=== PATIENT | female | born 1995 | race Caucasian/White ===

== ENCOUNTER 2021-08-01 23:14 | Emergency (ER) | payer MEDICAID ==
[~2021-08-01] VITALS: Ht 162.6 cm; Wt 52.2 kg
[2021-08-01 23:59] VITALS: BP 132/82
[2021-08-02] MEDS ORDERED: TDAP [DIPH/PERTUSSIS/TET] 0.5 ML VIAL IM ONE (00:30)
== END 2021-08-02 00:21 | disposition home or self-care (01) ==
LOC: ER 23:14
DX: S51.812A Laceration without foreign body of left forearm, initial encounter (principal); F32.9 Major depressive disorder, single episode, unspecified; F41.9 Anxiety disorder, unspecified; X78.8XXA Intentional self-harm by other sharp object, initial encounter; Y93.89 Activity, other specified; Y92.89 Other specified places as the place of occurrence of the external cause; Y99.8 Other external cause status
CPT/HCPCS: 90715

== ENCOUNTER 2021-08-05 19:06 | Emergency (ER) | payer MEDICAID ==
[~2021-08-05] VITALS: Ht 162.6 cm; Wt 52.2 kg
[2021-08-05 19:57] VITALS: BP 125/81
[2021-08-05] MEDS ORDERED: NEOM1OIN15 TP (20:59)
[2021-08-05] MEDS ORDERED: BACI/NEOM/POLY B OINT PKT 1 UDPKT PACKET ONE (21:05)
[2021-08-05] MEDS: BACI/NEOM/POLY B OINT PKT 1 UDPKT PACKET TP ONE (21:09)
== END 2021-08-05 21:12 | disposition home or self-care (01) ==
LOC: ER 19:11
DX: S51.812D Laceration without foreign body of left forearm, subsequent encounter (principal); X58.XXXD Exposure to other specified factors, subsequent encounter

== ENCOUNTER 2021-11-15 17:50 | Emergency (ER) | payer MEDICAID ==
[~2021-11-15] VITALS: Ht 162.6 cm; Wt 56.7 kg
[~2021-11-15 17:50] MED LIST: NEOM1OIN15 TP
[2021-11-15 18:26] VITALS: BP 118/68
== END 2021-11-15 19:14 | disposition home or self-care (01) ==
LOC: ER 17:53
DX: T25.211A Burn of second degree of right ankle, initial encounter (principal); F32.A Depression, unspecified; F41.9 Anxiety disorder, unspecified; Z60.2 Problems related to living alone; X19.XXXA Contact with other heat and hot substances, initial encounter; Y93.89 Activity, other specified; Y92.89 Other specified places as the place of occurrence of the external cause; Y99.8 Other external cause status

== ENCOUNTER 2022-11-05 18:36 | Emergency (ER) | payer MEDICAID ==
[~2022-11-05] VITALS: Ht 167.6 cm; Wt 59.0 kg
[2022-11-05 19:08] VITALS: BP 100/62
--- NOTE | 2022-11-05 19:44 | NUR ---
COVID SWAB AND INFLUENZA SWAB COLLECTED AND SENT TO LAB.
--- NOTE | 2022-11-05 20:12 | NUR ---
XRAY DONE AT BEDSIDE.
[2022-11-05] MEDS ORDERED: ACET325C7 PO (22:01)
--- NOTE | 2022-11-05 22:07 | NUR ---
Patient discharged to home in stable condition. Written and verbal after care instructions given. Patient verbalizes understanding of instruction.
== END 2022-11-05 22:07 | disposition home or self-care (01) ==
LOC: ER 18:48
DX: R05.9 Cough, unspecified (principal); M79.10 Myalgia, unspecified site; F32.A Depression, unspecified; F41.9 Anxiety disorder, unspecified; Z20.822 Contact with and (suspected) exposure to COVID-19; Z60.2 Problems related to living alone; Z79.899 Other long term (current) drug therapy
CPT/HCPCS: 99284; 71045; 87426; 87804 ×2; C9803